=== PATIENT | female | born 1980 | race African-American/Black ===

== ENCOUNTER 2024-10-16 16:48 | Emergency (ER) | payer BC, OTHER ==
[~2024-10-16] VITALS: Ht 167.6 cm; Wt 120.0 kg
[2024-10-16 16:50] VITALS: O2SAT 96
[2024-10-16 17:54] VITALS: BP 114/76; PULSE 98; RESP 16; TEMP 37.33632; O2SAT 96
== END 2024-10-16 18:10 | disposition home or self-care (01) ==
LOC: ER 16:48
DX: G40.909 Epilepsy, unspecified, not intractable, without status epilepticus (principal); I10 Essential (primary) hypertension
CPT/HCPCS: 99283

== ENCOUNTER 2025-05-01 00:49 | Emergency (ER) | payer OTHER ==
[~2025-05-01] VITALS: Ht 172.7 cm; Wt 136.0 kg
[2025-05-01 01:45] VITALS: TEMP 36.7; O2SAT 98
[2025-05-01] MEDS: MORPHINE SULFATE 4 MG/ML INJ (FOR IV/IM USE) IV STA ×2 (04:01→04:26)
[2025-05-01] MEDS ORDERED: ONDANSETRON HCL 4MG/2ML INJ IV STA (04:01)
[2025-05-01] MEDS ORDERED: ETOMIDATE 2MG/ML 10ML VIAL IV ONE (04:15)
[2025-05-01] MEDS: ONDANSETRON HCL 4MG/2ML INJ IV STA (04:28)
[2025-05-01] MEDS: SODIUM CHLORIDE 0.9% 1,000 ML IV ONE (04:33)
[2025-05-01] MEDS: ETOMIDATE 2MG/ML 10ML VIAL IV ONE (04:47)
[2025-05-01] MEDS ORDERED: IBUP-2029 MT (06:05)
[2025-05-01 06:16] VITALS: BP 165/93; PULSE 72; RESP 17; O2SAT 97
== END 2025-05-01 06:34 | disposition home or self-care (01) ==
LOC: ER 00:49
DX: S43.001A Unspecified subluxation of right shoulder joint, initial encounter (principal); R56.9 Unspecified convulsions; I10 Essential (primary) hypertension; Z79.899 Other long term (current) drug therapy; X58.XXXA Exposure to other specified factors, initial encounter; Y93.89 Activity, other specified; Y92.89 Other specified places as the place of occurrence of the external cause; Y99.8 Other external cause status
CPT/HCPCS: 81025; 73030; 23650; 96360; 99152; 99285; J3490; J2405; J2270; J7030; Z7610 ×4; A4606